=== PATIENT | male | born 1980 | race Caucasian/White ===

== ENCOUNTER 2020-04-14 13:17 | Outpatient (REF) | payer OTHER, SELFPAY | END 2020-04-14 13:18 | disposition home or self-care (01) | LOC: HO.LAB 13:17 | PROVIDERS: PCP Internal Medicine; Visit Provider Internal Medicine | DX: Z20.828 Contact with and (suspected) exposure to other viral communicable diseases (principal) | CPT/HCPCS: 87635 ==

== ENCOUNTER 2022-01-19 14:51 | Outpatient (REF) | payer OTHER, SELFPAY ==
--- NOTE | ~2022-01-19 | XR_ITS ---
EXAMINATION: XR CHEST CLINICAL INFORMATION: Dyspnea COMPARISON: None TECHNIQUE: 2 views of the chest were obtained. FINDINGS: Lungs are slightly hypoinflated. No airspace consolidation. Minimal subsegmental atelectasis or scarring in the lingula. No pleural effusion or pneumothorax. Normal cardiomediastinal silhouette and pulmonary vascularity. No acute osseous injury. XR/XR chest 2V IMPRESSION: No acute pulmonary process.
[2022-01-19 15:29] LABS: MANUAL DIFF FLAG NO
[2022-01-19 15:52] LABS: Basophils Absolute Auto 0.1 X10*3/uL (0.0-0.2); Basophils Percent Auto 0.5 % (0-2); Eosinophils Absolute Auto 0.1 X10*3/uL (0.0-0.4); Eosinophils Percent Auto 1.1 % (0-4); Hematocrit 46.8 % (42.0-52.0); Hemoglobin 15.7 g/dl (14.0-18.0); Imm Gran Abs Auto 0.08 X10*3/uL (0.00-0.03); Imm Gran Pct Auto 0.6 % (0.0-0.4); Lymphocytes Absolute Auto 2.8 X10*3/uL (1.2-4.9); Lymphocytes Percent Auto 21.9 % (20-40); Mean Corpuscular HGB Conc 33.5 g/dl (31.0-36.0); Mean Corpuscular Hemoglobin 29.3 pg (27.0-33.0); Mean Corpuscular Volume 87.3 fL (80.0-98.0); Mean Platelet Volume 10.1 fL (9.4-12.4); Monocytes Absolute Auto 0.9 X10*3/uL (0.1-1.2); Monocytes Percent Auto 6.6 % (2-11); Neutrophils Absolute Auto 8.9 x10*3/uL (2.0-8.3); Neutrophils Percent Auto 69.3 % (45-73); Platelet Count 335 X10*3/uL (160-400); Red Blood Count 5.36 X10*6/uL (4.60-5.80); Red Cell Distribution Width 12.8 % (11.0-16.0); White Blood Count 12.9 X10*3/uL (4.8-10.8)
[2022-01-19 15:58] LABS: D Dimer High Sensitivity 438 NG/ML
[2022-01-19 16:18] LABS: Alanine Aminotransferase 42 U/L (0-40); Albumin Level 4.6 g/dL (3.5-5.0); Alkaline Phosphatase 69 U/L (39-117); Anion Gap 14 (12-20); Aspartate Amino Transferase 22 U/L (5-37); Bilirubin Total 1.3 mg/dL (0.0-1.0); Blood Urea Nitrogen 21 mg/dL (9-16); Calcium 9.8 mg/dL (8.4-10.2); Carbon Dioxide 25 mmol/L (22-29); Chloride 104 mmol/L (96-108); Estimated Glomerular Filt Rate > 60; Glucose Random 86 mg/dL (60-115); Potassium 4.2 mmol/L (3.3-5.1); Sodium 139 mmol/L (135-145); Total Protein 7.5 g/dL (6.5-8.0)
[2022-01-19 16:24] LABS: Troponin-I High Sensitivity 7.7 ng/L (<3.5-35.0)
[2022-01-21 04:55] LABS: NT-proBNP 28 pg/mL
== END 2022-01-19 14:52 | disposition home or self-care (01) ==
LOC: HO.XRAY 14:51
PROVIDERS: PCP Internal Medicine; Visit Provider Internal Medicine
DX: R06.00 Dyspnea, unspecified (principal)
CPT/HCPCS: 36415; 71046; 80053; 83880; 84484; 85025; 85379

== ENCOUNTER 2022-01-20 16:15 | Outpatient (REF) | payer OTHER, SELFPAY ==
--- NOTE | ~2022-01-20 | CT_ITS ---
EXAMINATION: CT ANGIOGRAM OF THE CHEST WITH AND WITHOUT CONTRAST (CT PULMONARY ANGIOGRAM FOR PE) CLINICAL INFORMATION: Reason for Exam SOB COMPARISON: None TECHNIQUE: Prior to contrast administration, noncontrast localization images were obtained. Subsequently, multidetector volumetric imaging was performed from the thoracic inlet to below the diaphragms following the administration of 80 mL Omnipaque 350 intravenous contrast. No contrast reaction reported Sagittal, coronal, and MIP oblique sagittal reformatted images were obtained on the CT workstation, uploaded to PACS, and reviewed. This CT examination was performed using dose optimization techniques as appropriate, variously including the following: *Automated exposure control *Adjustment of mA and/or kV according to patient size (this includes techniques or standardized protocols for targeted exams where dose is matched to indication/reason for exam; i.e. extremities or head) *Use of iterative reconstruction technique Total exam dose-length product 152 mGy-cm FINDINGS: QUALITY OF STUDY/CONTRAST BOLUS: Satisfactory. PULMONARY ARTERIES: There is good opacification of pulmonary arteries without any filling defects to suspect any PE. Is no narrowing. However there is streak artifacts seen in the superior major) artery on coronal projection not visualized on axial or sagittal reconstructed views. THORACIC AORTA: No aneurysm or dissection. LUNG: The lungs are well-expanded with diffuse groundglass attenuation in the right lower lobe and platelike atelectasis likely secondary to low-grade inflammatory or infectious etiology. Mild ground glass attenuation is also visualized in the posterior segments of left lower lobe. No true consolidation seen. PLEURA: No pleural effusion or pneumothorax. MEDIASTINUM: The heart size is normal. The great vessels are normal caliber. The central trachea and the bronchi widely patent. The thyroid lobes are symmetric and normal. No pericardial effusion or abnormal size lymphadenopathy seen. No evidence of septal bowing or right heart strain. CHEST WALL/AXILLA: No axillary or internal mammary lymphadenopathy. OSSEOUS STRUCTURES: No aggressive lytic or sclerotic process seen. UPPER ABDOMEN: Visualized liver, spleen, pancreas and bilateral adrenal glands unremarkable. No radiopaque gallstones seen. No reflux of contrast into the hepatic veins to suggest elevated right heart pressures. CT/CT angio chest PE protocol IMPRESSION: No evidence of PE. No evidence aortic dissection or aneurysm. Diffuse groundglass attenuation in the right lower lobe with platelike atelectasis and mild groundglass attenuation in the left lower lobe posterior segment. These findings are suggestive of low-grade inflammatory or infectious etiology. However there is no true consolidation seen. There is no pleural effusion. VTE: negative,
[2022-01-20] MEDS: iohexoL 350 MG/ML 100 ML INFUS..BTL IV (16:42)
== END 2022-01-20 16:16 | disposition home or self-care (01) ==
LOC: HO.CT 16:15
PROVIDERS: PCP Internal Medicine; Visit Provider Internal Medicine
DX: R07.9 Chest pain, unspecified (principal); R06.02 Shortness of breath
CPT/HCPCS: 71275; Q9967

== ENCOUNTER 2023-01-21 09:18 | Outpatient (REF) | payer OTHER, SELFPAY ==
--- NOTE | 2023-01-21 | PFT_ITS ---
Forced vital capacity 70%, FEV1 80%, FEV1 over FVC ratio is 91. FEF 25-75, 92%. MVV 41%. Post bronchodilator therapy, no change. Total lung capacity is 72%. Residual volume 65%. Diffusion capacity 93%. CONCLUSION: The reduced MVV seems to be due to poor effort. The patient had significant difficulty with performing the maximum effort. There is no evidence of obstructive airway disorder. There is evidence for mild restrictive pulmonary disorder. Clinical correlation recommended. Francine Rodriguez MD MSB/MODL / [id number]
== END 2023-01-21 09:19 | disposition home or self-care (01) ==
LOC: HO.RESP 09:18
PROVIDERS: PCP Internal Medicine; Visit Provider Internal Medicine
DX: R06.02 Shortness of breath (principal); R06.2 Wheezing
CPT/HCPCS: 94010; 94727; 94729

== ENCOUNTER → 2023-01-21 09:25 | Outpatient (BNV) | payer OTHER, SELFPAY | PROVIDERS: PCP Internal Medicine; Visit Provider Internal Medicine | DX: R06.09 Other forms of dyspnea (principal); R06.2 Wheezing | CPT/HCPCS: 94060; 94727; 94729 ==